=== PATIENT | male | born 1990 | race Caucasian/White ===

== ENCOUNTER 2017-11-27 18:34 | Emergency (ER) | payer OTHER ==
[~2017-11-27] VITALS: Ht 177.8 cm; Wt 74.0 kg
[2017-11-27 18:57] VITALS: BP 115/76
== END 2017-11-27 21:50 | disposition left against medical advice (07) ==
LOC: ER 18:34
DX: Z53.21 Procedure and treatment not carried out due to patient leaving prior to being seen by health care provider (principal)